=== PATIENT | male | born 2000 | race Caucasian/White ===

== ENCOUNTER 2022-09-20 19:00 | Emergency (ER) | payer SELFPAY ==
[~2022-09-20] VITALS: Ht 180.3 cm; Wt 99.8 kg
[~2022-09-20 19:00] MED LIST: AMOCLA600S PO; AZIT100SU PO; RXAMOCLASU PO
== END 2022-09-20 21:55 | disposition home or self-care (01) ==
LOC: ER 19:00
DX: S61.412A Laceration without foreign body of left hand, initial encounter (principal); W22.8XXA Striking against or struck by other objects, initial encounter
CPT/HCPCS: 73130

== ENCOUNTER 2023-06-06 04:49 | Emergency (ER) | payer SELFPAY ==
[~2023-06-06] VITALS: Ht 177.8 cm; Wt 86.2 kg
[2023-06-06 05:30] VITALS: BP 153/87
[2023-06-06] MEDS ORDERED: Ipratropium/Albuterol SulF 2.5-0.5MG/3 ML Amp INH ONE (05:35)
[2023-06-06 05:50] LABS: Influenza A, PCR NEGATIVE (NEGATIVE); Influenza B, PCR NEGATIVE (NEGATIVE); Resp Syncytial Virus, PCR NEGATIVE (NEGATIVE); SARS-Cov-2 (COVID-19) PCR, MMC NEGATIVE (NEGATIVE)
[2023-06-06] MEDS ORDERED: DELTASONE20 MG PO (06:02)
[2023-06-06] MEDS ORDERED: PredniSONE 20 MG Tab PO ONE (06:05)
== END 2023-06-06 06:12 | disposition home or self-care (01) ==
LOC: ER 04:49
PROVIDERS: Emergency Medicine
DX: J20.8 Acute bronchitis due to other specified organisms (principal)
CPT/HCPCS: 0241U; 71045; 94640; 94664; 99285-25; J7512